=== PATIENT | female | born 1985 | race Asian ===

== ENCOUNTER 2016-06-14 21:08 | Inpatient (IN) | payer BC, OTHER ==
[~2016-06-14] VITALS: Ht 154.9 cm; Wt 51.4 kg
[2016-06-14 21:45] LABS: BASOPHILS # (AUTO) 0.14 K/uL (0.00-0.20); BASOPHILS % (AUTO) 1.5 % (0.0-2.0); EOSINOPHILS # (AUTO) 0.19 K/uL (0.00-0.70); EOSINOPHILS % (AUTO) 1.95 % (1.0-6.0); HEMATOCRIT 40.2 % (36-46); HEMOGLOBIN 13.5 g/dL (12.0-16.0); LYMPHOCYTES # (AUTO) 4.5 K/uL (1.0-4.8); LYMPHOCYTES % (AUTO) 46.3 % (22.0-44.0); MEAN CORPUSCULAR HEMOGLOBIN 30.1 pg (26.0-34.0); MEAN CORPUSCULAR HGB CONC 33.6 G/dL (31.0-37.0); MEAN CORPUSCULAR VOLUME 89 fL (80-100); MONOCYTES # (AUTO) 0.5 K/uL (0.1-1.0); MONOCYTES % (AUTO) 5.6 % (2.0-9.0); NEUTROPHILS # (AUTO) 4.3 K/uL (1.8-7.7); NEUTROPHILS % (AUTO) 44.6 % (40.0-70.0); PLATELET COUNT (AUTO) 270 K/uL (150-450); RED CELL DISTRIBUTION WIDTH 11.9 % (11.5-14.5); WHITE BLOOD COUNT (AUTO) 9.7 K/uL (4.5-11.0)
[2016-06-14 21:52] LABS: ANION GAP 8 mmol/L (8-16); CALCIUM, TOTAL 8.4 mg/dL (8.8-10.5); CARBON DIOXIDE 30 mmol/L (22-29); CHLORIDE 103 mmol/L (98-107); CREATININE 0.98 mg/dL (0.60-1.30); GLOMERULAR FILTR. RATE CALC > 60 mL/min (>60); POTASSIUM 3.7 mmol/L (3.5-5.1); SODIUM SERUM 141 mmol/L (136-145); UREA NITROGEN, BLOOD 19 mg/dL (7-18)
[2016-06-14 21:57] LABS: ALANINE AMINOTRANSFERASE 22 U/L (12-78); ALBUMIN 3.7 g/dL (3.4-5.0); ASPARTATE AMINOTRANSFERASE 14 U/L (15-37); BILIRUBIN,TOTAL 0.3 mg/dL (0.1-1.0); TOTAL PROTEIN, SERUM 7.7 g/dL (6.4-8.2)
[2016-06-14] MEDS ORDERED: ONDANSETRON HCL 4 MG/2 ML VIAL IVP ONE (22:00)
[2016-06-14] MEDS ORDERED: MORPHINE SULFATE 4 MG/ML SYRINGE IVP ONE (22:00)
[2016-06-14] MEDS ORDERED: SODIUM CHLORIDE 0.9% 1,000 ML IV ONE (22:00)
[2016-06-14] MEDS ORDERED: PANTOPRAZOLE SODIUM 40 MG/VIAL IVP ONE (22:15)
[2016-06-14 22:37] LABS: APPEARANCE,URINE CLEAR (CLEAR); GLUCOSE, URINE (UA) NEGATIVE (NEGATIVE); KETONES,URINE NEGATIVE (NEGATIVE); LEUKOCYTE ESTERASE ,URINE TRACE (NEGATIVE); OCCULT BLOOD,URINE NEGATIVE (NEGATIVE); PROTEIN,URINE NEGATIVE (NEGATIVE)
[2016-06-14 22:46] LABS: CALCIUM OXALATE CRYSTALS,UR Few /LPF (None Seen); RBC,URINE 0-2 /HPF (0-2); SQUAMOUS EPITHELIAL CELL,UR Few /LPF (None Seen)
[2016-06-15] MEDS ORDERED: ACETAMINOPHEN 325 MG TABLET PO PRN ×2 (01:15→06:45)
[2016-06-15] MEDS ORDERED: ONDANSETRON HCL 4 MG/2 ML VIAL IVP PRN (01:15)
[2016-06-15] MEDS ORDERED: 0.9% SODIUM CHLORIDE 10 ML SYRINGE IVP PRN (01:15)
[2016-06-15] MEDS ORDERED: MORPHINE SULFATE 4 MG/ML SYRINGE IVP PRN (01:15)
[2016-06-15] MEDS ORDERED: INFLUENZA VIRUS VACCINE QVS 2016-17 (3YR+)/PF 60 MCG/0.5 ML SYRINGE IM ONE (01:45)
[2016-06-15 01:54] VITALS: BP 112/72
[2016-06-15] MEDS ORDERED: MAGNESIUM HYDROXIDE SUSPENSION 30 ML UDCUP PO PRN (06:45)
[2016-06-15 07:40] LABS: ALANINE AMINOTRANSFERASE 38 U/L (12-78); ALBUMIN 2.9 g/dL (3.4-5.0); ANION GAP 8 mmol/L (8-16); ASPARTATE AMINOTRANSFERASE 37 U/L (15-37); BILIRUBIN,TOTAL 0.5 mg/dL (0.1-1.0); CALCIUM, TOTAL 7.5 mg/dL (8.8-10.5); CARBON DIOXIDE 25 mmol/L (22-29); CHLORIDE 107 mmol/L (98-107); CREATININE 0.92 mg/dL (0.60-1.30); GLOMERULAR FILTR. RATE CALC > 60 mL/min (>60); POTASSIUM 3.8 mmol/L (3.5-5.1); SODIUM SERUM 140 mmol/L (136-145); TOTAL PROTEIN, SERUM 6.3 g/dL (6.4-8.2); UREA NITROGEN, BLOOD 10 mg/dL (7-18)
[2016-06-15 08:00] VITALS: BP 106/65
[2016-06-15] MEDS ORDERED: CefTRIAXone 1 GM/DEXTROSE 50 ML IV ONE (08:00)
[2016-06-15] MEDS: DOCUSATE SODIUM 100 MG CAPSULE PO SCH ×2 (08:30→20:21)
[2016-06-15] MEDS ORDERED: SODIUM CHLORIDE 0.9% 250 ML IV ONE (08:38)
[2016-06-15] MEDS ORDERED: PANTOPRAZOLE SODIUM 40 MG/VIAL IVP SCH (09:00)
[2016-06-15 11:50] VITALS: BP 103/60
[2016-06-15] MEDS ORDERED: POTASSIUM CHL 20 MEQ/D5-0.45NS 1,000 ML IV SCH (12:15)
[2016-06-15 15:32] VITALS: BP 110/68
[2016-06-15] MEDS: MORPHINE SULFATE 2 MG/ML SYRINGE IVP PRN (16:00)
[2016-06-15 19:46] VITALS: BP 97/59
[2016-06-16 00:08] VITALS: BP 118/62
[2016-06-16] MEDS: MORPHINE SULFATE 2 MG/ML SYRINGE IVP PRN ×3 (00:15→22:00)
[2016-06-16] MEDS: POTASSIUM CHL 20 MEQ/D5-0.45NS 1,000 ML IV SCH (00:15)
[2016-06-16] MEDS ORDERED: PROPOFOL 1% 20 ML VIAL IVP ONE (04:43)
[2016-06-16] MEDS ORDERED: NEOSTIGMINE METHYLSULFATE 1 MG/ML 10 ML VIAL IVP ONE (04:43)
[2016-06-16] MEDS ORDERED: GLYCOPYRROLATE 0.2 MG/ML VIAL IM ONE (04:43)
[2016-06-16] MEDS ORDERED: DEXAMETHASONE SOD PHOS 4 MG/ML VIAL IVP ONE (04:43)
[2016-06-16] MEDS ORDERED: HYDROmorphone 2 MG/ML SYRINGE IVP ONE (04:43)
[2016-06-16] MEDS ORDERED: MIDAZOLAM HCL 2 MG/2 ML VIAL IVP ONE (04:43)
[2016-06-16] MEDS ORDERED: FentaNYL CITRATE-PF 100 MCG/2 ML VIAL IVP ONE (04:43)
[2016-06-16] MEDS ORDERED: ROCURONIUM BROMIDE 10 MG/ML 5 ML VIAL IVP ONE (04:43)
[2016-06-16] MEDS ORDERED: KETOROLAC TROMETHAMINE 60 MG/2 ML VIAL IM ONE (04:43)
[2016-06-16] MEDS ORDERED: LIDOCAINE HCL/PF 2% 5 ML VIAL IM ONE (04:43)
[2016-06-16] MEDS ORDERED: ONDANSETRON HCL 4 MG/2 ML VIAL IVP ONE (04:43)
[2016-06-16 05:00] VITALS: BP 109/76
[2016-06-16] MEDS ORDERED: RINGERS SOLUTION,LACTATED 1,000 ML IV ONE ×2 (06:30→09:01)
[2016-06-16] MEDS ORDERED: BUPIVACAINE 0.25%/EPI 1:200,000/PF 10 ML VIAL ONE (06:40)
[2016-06-16] MEDS ORDERED: SODIUM CL IRRIG SOLN BAG 3,000 ML IRRIG ONE (06:41)
[2016-06-16] MEDS ORDERED: IOHEXOL 240 MG/ML 20 ML VIAL ONE (07:09)
[2016-06-16] MEDS ORDERED: CefoTEtan DISOD 2 GM/DEXTROSE 50 ML IV ONE (08:25)
[2016-06-16] MEDS: DOCUSATE SODIUM 100 MG CAPSULE PO SCH ×2 (09:00→22:00)
[2016-06-16] MEDS ORDERED: HYDROmorphone 2 MG/ML SYRINGE IVP PRN (10:15)
[2016-06-16] MEDS ORDERED: FentaNYL CITRATE-PF 100 MCG/2 ML VIAL IVP PRN (10:15)
[2016-06-16] MEDS ORDERED: MEPERIDINE-PF 25 MG/ML SYRINGE IVP PRN (10:15)
[2016-06-16] MEDS ORDERED: OXYGEN THERAPY IH SCH (10:18)
[2016-06-16] MEDS ORDERED: OxyCODONE HCL/ACETAMINOPHEN 5-325 MG TABLET PO PRN (10:30)
[2016-06-16 11:40] VITALS: BP 120/77
[2016-06-16] MEDS: OxyCODONE HCL/ACETAMINOPHEN 5-325 MG TABLET PO PRN (15:37)
[2016-06-16 16:04] VITALS: BP 113/69
[2016-06-16] MEDS ORDERED: DiphenhydrAMINE HCL 50 MG/ML VIAL IVP PRN (17:00)
[2016-06-16 19:30] VITALS: BP 100/51
[2016-06-16 23:15] VITALS: BP 111/69
[2016-06-17] MEDS: POTASSIUM CHL 20 MEQ/D5-0.45NS 1,000 ML IV SCH (02:13)
[2016-06-17 04:28] VITALS: BP 104/71
[2016-06-17] MEDS: MORPHINE SULFATE 2 MG/ML SYRINGE IVP PRN (05:24)
[2016-06-17 07:10] VITALS: BP 114/60
[2016-06-17] MEDS: DOCUSATE SODIUM 100 MG CAPSULE PO SCH (08:17)
[2016-06-17] MEDS: OxyCODONE HCL/ACETAMINOPHEN 5-325 MG TABLET PO PRN (11:17)
[2016-06-17 11:23] VITALS: BP 119/67
[2016-06-17] MEDS ORDERED: HYDR-309 PO (14:30)
[2016-06-17] MEDS ORDERED: DOCU-174 PO (14:32)
[2016-06-17] MEDS ORDERED: HYDROCODONE/ACETAMINOPHEN 5-325 MG TABLET PO PRN (15:45)
== END 2016-06-17 17:10 | disposition home or self-care (01) | DRG 263 ==
LOC: EMS 21:09 → 6N 06-15 00:52
PROVIDERS: ADMIT Internal Medicine; ATTEND Internal Medicine
PROC: BF131ZZ Fluoroscopy of Gallbladder and Bile Ducts using Low Osmolar Contrast (ICD-10-PCS; 2016-06-16)
PROC: 0FT44ZZ Resection of Gallbladder, Percutaneous Endoscopic Approach (ICD-10-PCS; principal; 2016-06-16 07:30)
DX: K80.00 Calculus of gallbladder with acute cholecystitis without obstruction (principal); E43 Unspecified severe protein-calorie malnutrition; N39.0 Urinary tract infection, site not specified; K83.8 Other specified diseases of biliary tract; M41.9 Scoliosis, unspecified; Z80.6 Family history of leukemia; Z91.040 Latex allergy status; Z68.21 Body mass index [BMI] 21.0-21.9, adult
CPT/HCPCS: 74300; 76700; 87086; 88304; 96361; 96374; 96375; 99285; C9113; G0238; J0696; J1100; J1170; J1200; J1885; J2250; J2270; J2405; J2704; J3010; J3480; J3490; J7030; J7050; J7120; Q9966

== ENCOUNTER 2016-08-27 21:39 | Emergency (ER) | payer OTHER ==
[~2016-08-27] VITALS: Ht 154.9 cm; Wt 50.0 kg
[~2016-08-27 21:39] MED LIST: DOCU-174 PO; HYDR-309 PO
[2016-08-28] MEDS ORDERED: NAPROXEN 250 MG TABLET PO ONE (00:15)
[2016-08-28 01:56] VITALS: BP 124/71
== END 2016-08-28 02:34 | disposition home or self-care (01) ==
LOC: EMS 21:40
DX: G44.309 Post-traumatic headache, unspecified, not intractable (principal); Z88.5 Allergy status to narcotic agent; Z88.6 Allergy status to analgesic agent; Z91.040 Latex allergy status
CPT/HCPCS: 70450; 72040; 81025; 99284